=== PATIENT | female | born 1985 | race Caucasian/White ===

== ENCOUNTER 2017-06-29 14:05 | Emergency (ER) | payer BC, OTHER ==
[~2017-06-29] VITALS: Ht 152.4 cm; Wt 57.0 kg
[~2017-06-29 14:05] MED LIST: CEPH500C PO; PRED10TA PO
[2017-06-29 14:20] VITALS: TEMP 36.8; Ht 152.4 cm; Wt 57.0 kg
[2017-06-29] MEDS ORDERED: CEPH500C PO (14:43)
[2017-06-29] MEDS ORDERED: SULF800T23 PO (14:43)
[2017-06-29 15:01] VITALS: BP 112/74; PULSE 85; O2SAT 95
--- NOTE | 2017-06-29 16:06 | EMERGENCY ROOM VISIT NOTE ---
History First contact with patient: 14:23 Chief Complaint: ANKLE PAIN Stated Complaint: ANKLE PAIN,REDNESS History of Present Illness The patient is a 31 year old female who presents to the Emergency Room with complaints of an area of redness over the inner right ankle region. The patient reports that she noticed swelling and redness on night, and also had a faint streaks yesterday. The patient denies any known trauma or irritation of the skin over the inner ankle region. She denies any known trauma to the area. She denies any pain extending into the leg, knee, thigh or back. She rates her discomfort a 5 out of 10. Review of Systems 10 system review was performed and was negative except for pertinent positives and negatives as indicated in history of present illness Past Medical/Surgical History Medical Problems: (1) Infectious Mononucleosis Surgical Problems: (1) No history of previous surgery Family History FH: cancer FH: heart disease FH: hypertension FH: kidney disease Social History Smoking Status: Never Smoker Alcohol Use: occasionally Marital Status: single Occupation Status: employed Current/Historical Medications Scheduled Cephalexin Monohydrate (Keflex), 500 MG PO QID Sulfa/Trimethoprim (Bactrim Ds 800MG/160MG), 1 TAB PO BID Physical Exam Vital Signs Date Time Temp Pulse Resp B/P (MAP) Pulse Ox O2 Delivery O2 Flow Rate FiO2 06/29/17 15:01 85 16 112/74 95 06/29/17 14:20 36.8 99 18 129/78 96 Room Air Physical Exam CONSTITUTIONAL: Healthy and well nourished. Alert and oriented X 3 with positive affect. Patient does not appear in any acute distress. HEENT: Normocephalic, atraumatic. Pupils equal, round and reactive. NECK: Full active range of motion without discomfort. MUSCULOSKELETAL: Examination shows a small area of erythema and tenderness to palpation over the medial malleolus. There is no obvious skin breaks. She has no other significant focal tenderness over the anterior ankle mortise, lateral malleolus or Achilles tendon. No obvious soft tissue edema appreciated. Pedal pulses are intact. INTEGUMENTARY: No rash or other significant dermatologic conditions noted. NEUROLOGIC: No focal neurologic deficits noted. Right foot and toes are sensory intact. Medical Decision & Procedures ED Course Patient history and physical exam were performed. Nurse's notes were reviewed. Vital signs were reviewed and were normal. Examination and history is most consistent with a focal cellulitis. The patient was provided prescriptions for Keflex and Bactrim DS antibiotics. The patient was instructed to return to the emergency department for any presently worsening redness, swelling, pain or fever. The patient was advised that the erythema should start to resolve within the next 48 hours. The patient was happy with plan of care, voiced understanding of all discharge instructions, and rated her discomfort a 4 out of 10 at the conclusion of my exam. Medical Decision Blood Pressure Screening Patient's blood pressure: Normal blood pressure Impression Primary Impression: Cellulitis of right ankle Departure Information Dispostion Home / Self-Care Condition GOOD Prescriptions Sulfa/Trimethoprim (Bactrim Ds 800MG/160MG) Tab 1 TAB PO BID for 7 Days, #14 TAB Prov: Russ Kim PA 06/29/17 Cephalexin Monohydrate (Keflex) 500 Mg Cap 500 MG PO QID for 7 Days, #28 CAP Prov: Russ Kim PA 06/29/17 Forms HOME CARE DOCUMENTATION FORM, IMPORTANT VISIT INFORMATION Patient Instructions My [facility] Additional Instructions Complete all Keflex and Bactrim DS antibiotics as prescribed. Avoid any undue pressure on the site of infection. Minimize time on feet until infection improves. Ibuprofen 800 mg and/or Tylenol 1000 mg every 8 hours. You may also alternate these medications for more effective pain relief: Ibuprofen --4 HRS--> Tylenol --4 HRS--> ibuprofen --4 HRS--> Tylenol .... Return to the emergency department for any progressively worsening pain, redness , swelling or developing fever. FOR WORK: Please allow frequent breaks as needed until infection improves.
== END 2017-06-29 15:02 | disposition home or self-care (01) ==
LOC: C.EDB 14:08 → C.EDD 15:02
DX: L03.115 Cellulitis of right lower limb (principal); Z82.49 Family history of ischemic heart disease and other diseases of the circulatory system